=== PATIENT | female | born 1960 | race Caucasian/White ===

== ENCOUNTER 2016-09-12 19:41 | Emergency (ER) | payer BC, OTHER ==
[~2016-09-12] VITALS: Ht 170.2 cm; Wt 84.5 kg
[2016-09-12] MEDS ORDERED: SODIUM CHLORIDE 0.9% 1,000 ML IV ONE (20:43)
[2016-09-12] MEDS ORDERED: ONDANSETRON 2MG/ML, 2ML ONE (20:48)
[2016-09-12] MEDS ORDERED: KETOROLAC 30 MG/1 ML ONE (20:48)
[2016-09-12] MEDS ORDERED: HYDROmorphone 1 MG/ML, 1ML ONE (20:48)
[2016-09-12] MEDS ORDERED: HYDROmorphone 1 MG/ML, 1ML IVPush PRN (21:00)
[2016-09-12] MEDS ORDERED: ONDANSETRON 2MG/ML, 2ML IVPush ONE (21:00)
[2016-09-12] MEDS ORDERED: KETOROLAC 30 MG/1 ML IVPush ONE (21:00)
[2016-09-12] MEDS ORDERED: SODIUM CHLORIDE 0.9% 1,000ML IVBOLUS ONE (21:00)
[2016-09-12 21:12] LABS: BLOOD UREA NITROGEN 21 mg/dL (7-18)
[2016-09-12 21:17] LABS: ASPARTATE AMINO TRANSFERASE 16 U/L (15-37)
[2016-09-12] MEDS ORDERED: LOSA50TA6 PO (21:17)
[2016-09-12] MEDS ORDERED: FLUO40CA9 PO (21:17)
[2016-09-13 00:45] VITALS: BP 131/74
== END 2016-09-13 00:47 | disposition home or self-care (01) ==
LOC: ED 22:05
DX: R10.31 Right lower quadrant pain (principal); N13.2 Hydronephrosis with renal and ureteral calculous obstruction; R91.1 Solitary pulmonary nodule
CPT/HCPCS: 36415; 74000; 74176; 80053; 81001; 83690; 85025; 87086; 96361; 96374; 96375; 99285; J1170; J1885; J2405; J7030

== ENCOUNTER → 2016-11-10 | Outpatient (CLI) | payer BC ==
[~2016-11-10] MED LIST: FLUO40CA9 PO; LOSA50TA6 PO
== END | disposition home or self-care (01) ==
LOC: CFH 08:31
PROVIDERS: ATTEND Physician Assistant Surgical
DX: N13.39 Other hydronephrosis (principal); N20.1 Calculus of ureter
CPT/HCPCS: 74000; 76770

== ENCOUNTER → 2016-12-18 | Outpatient (CLI) | payer BC ==
[~2016-12-18] MED LIST changes: +REGADENOSON 0.4 MG/5 ML SYRINGE ONE
== END | disposition home or self-care (01) ==
LOC: CFH 09:34
PROVIDERS: ATTEND Family Medicine
DX: I07.1 Rheumatic tricuspid insufficiency (principal); I10 Essential (primary) hypertension; R51 Headache
CPT/HCPCS: 78452; 93017; 93306; A9502; J2785

== ENCOUNTER → 2018-06-16 | Outpatient (CLI) | payer BC ==
[~2018-06-16] MED LIST changes: +LOSA50TA14 PO; -LOSA50TA6 PO; -REGADENOSON 0.4 MG/5 ML SYRINGE ONE
== END | disposition home or self-care (01) ==
LOC: CFH 07:20
PROVIDERS: ATTEND Family Medicine
DX: M54.9 Dorsalgia, unspecified (principal)
CPT/HCPCS: 74018